=== PATIENT | male | born 1970 | race Caucasian/White ===

== ENCOUNTER 2022-12-01 21:33 | Emergency (ER) | payer BC, SELFPAY ==
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
[2022-12-01 21:38] VITALS: BP 145/83; PULSE 107; RESP 16; TEMP 36.7; O2SAT 99
== END 2022-12-01 22:24 | disposition home or self-care (01) ==
PROVIDERS: Emergency Provider Emergency Medicine
DX: T33.532A Superficial frostbite of left finger(s), initial encounter (principal); Z23 Encounter for immunization; X31.XXXA Exposure to excessive natural cold, initial encounter
CPT/HCPCS: 90471; 99284